=== PATIENT | female | born 1940 | race Caucasian/White ===

== ENCOUNTER 2017-04-12 15:56 | Inpatient (IN) | payer OTHER ==
[~2017-04-12] VITALS: Ht 152.4 cm; Wt 54.5 kg
[~2017-04-12 15:56] MED LIST: AMLODIPINE BESYL5 MG PO; ASPIRIN81 M2 PO; ATIVAN0.5 MG PO; BACTRIM,SEPT1 TABLET PO; CEPHALEXIN500 MG PO; CLONIDINE HCL0.1 MG PO; DUONEB 2.5-0.5 M3 ML AEROSOL; FERROUS SULFAT325 MG PO; FLORASTOR250 MG PO; FLUCONAZOLE100 MG PO; FUROSEMIDE40 MG PO; GLIPIZIDE5 MG PO; HEPARIN SO5000 UNITS SC; HYDRALAZINE HCL25 MG PO; K-DUR20 MEQ PO; KETOCONAZOLE60 GM TP; LEVEMIR FL100 UNIT/1 SC; LEVOFLOXACIN750 MG PO; LISINOPRIL10 MG PO; LOPRESSOR50 MG PO; LORAZEPAM0.5 MG PO; LOTRIMIN AF24 GM TP; METOPROLOL TART50 MG PO; MIRTAZAPINE15 MG PO; MOBIC7.5 MG PO; NORVASC5 MG PO; NOVOLOG PE100 UNITS/ SC; POTASSIUM CHLO20 ME1 PO; PREDNISONE10 MG PO; PRINIVIL20 MG PO; TYLENOL REGULA325 MG PO; Zeasorb Antifungal Treatment,Mitrazol Powder TP
[2017-04-12 17:00] LABS: BASOPHIL COUNT 0.1 K/uL (0-0.1); EOSINOPHIL (%) 2.4 % (0-5); EOSINOPHIL COUNT 0.2 K/uL (0-0.3); HEMATOCRIT 31.2 % (36.0-46.0); IMMATURE GRANULOCYTE (%) 0.3 % (0.0-0.7); INSTRUMENT ABS NEUTROPHIL CT 4.2 K/uL; LYMPHOCYTE COUNT 2.1 K/uL (1.0-2.8); MCH 31.3 PG (29.0-34.0); MCV 94.8 FL (83-99); MONOCYTE (%) 7.9 % (3-12); MONOCYTE COUNT 0.6 K/uL (0-0.8); NEUTROPHIL (%) 59.5 % (45-76); NEUTROPHIL COUNT 4.2 K/uL (1.8-6.4); PLATELET COUNT 150 K/uL (156-360); RBC DIS.WIDTH-CV 13.1 % (11.8-14.6); RBC DIS.WIDTH-SD 45.6 % (39-53); RED BLOOD COUNT 3.29 M/uL (3.80-5.20); WHITE BLOOD COUNT 7.1 K/uL (4.1-10.2)
[2017-04-12] MEDS ORDERED: LISINOPRIL10 MG PO (17:07)
[2017-04-12] MEDS ORDERED: NYSTOP60 GM TP (17:07)
[2017-04-12] MEDS ORDERED: JANUVIA25 M1 PO (17:08)
[2017-04-12 17:09] LABS: CHLORIDE 111 mEq/L (99-109); POTASSIUM 3.6 mEq/L (3.7-5.4); SODIUM 142 mEq/L (136-147)
[2017-04-12] MEDS ORDERED: CEROVITE ADVAN1 EACH PO (17:09)
[2017-04-12] MEDS ORDERED: SENNA PLUS TAB1 EACH PO (17:09)
[2017-04-12 17:11] LABS: GLUCOSE 232 mg/dL (70-99)
[2017-04-12 17:12] LABS: ANION GAP 6 MEQ/L (2-14)
[2017-04-12 17:14] LABS: GFR ESTIMATE (CALCULATED) 36 mL/min/
[2017-04-12 17:15] LABS: UREA NITROGEN (BUN) 36 mg/dL (9-23)
[2017-04-12] MEDS ORDERED: LO-DOSE ASPIRIN81 M2 PO (21:06)
[2017-04-12] MEDS ORDERED: TOPROL XL50 MG PO (21:06)
[2017-04-12 22:30] VITALS: BP 194/81
[2017-04-13 07:27] LABS: HEMATOCRIT 31.2 % (36.0-46.0); MCH 31.6 PG (29.0-34.0); MCHC 32.7 G/DL (30.0-36.0); MCV 96.6 FL (83-99); MEAN PLAT.VOLUME 9.2 uM^3 (9.5-12.4); PLATELET COUNT 159 K/uL (156-360); RBC DIS.WIDTH-SD 45.9 % (39-53); RED BLOOD COUNT 3.23 M/uL (3.80-5.20)
[2017-04-13 07:49] VITALS: BP 186/71
[2017-04-13 07:51] LABS: ALKALINE PHOSPHATASE 50 IU/L (3-129); ANION GAP 6 MEQ/L (2-14); CHLORIDE 112 MEQ/L (99-109); GFR ESTIMATE (CALCULATED) 42 mL/min/; GLUCOSE 133 mg/dL (70-99); POTASSIUM 3.6 MEQ/L (3.7-5.4); SAMPLE HEMOLYSIS CHECK 0; SAMPLE ICTERIC CHECK 0; SAMPLE LIPEMIA CHECK 0; SODIUM 144 MEQ/L (136-147); TOTAL BILIRUBIN 0.3 MG/DL (0.0-1.0); UREA NITROGEN (BUN) 28 mg/dL (9-23)
[2017-04-13 07:58] LABS: POINT-OF-CARE METER ID UU13113717
[2017-04-13 11:30] VITALS: BP 160/72
[2017-04-13 12:04] LABS: POINT-OF-CARE METER ID UU13113717
[2017-04-13 12:13] LABS: METH RESISTANT S AUREUS PCR POSITIVE (NEGATIVE); PROBE CHECK PASS
[2017-04-13 16:08] VITALS: BP 165/72
[2017-04-13 22:02] LABS: POINT-OF-CARE METER ID UU14174225
[2017-04-13 23:29] VITALS: BP 169/71
[2017-04-14 05:23] LABS: HEMATOCRIT 31.8 % (36.0-46.0); MCH 31.5 PG (29.0-34.0); MCV 95.5 FL (83-99); MEAN PLAT.VOLUME 8.8 uM^3 (9.5-12.4); PLATELET COUNT 170 K/uL (156-360); RBC DIS.WIDTH-CV 12.9 % (11.8-14.6); RBC DIS.WIDTH-SD 45.2 % (39-53); RED BLOOD COUNT 3.33 M/uL (3.80-5.20); WHITE BLOOD COUNT 7.6 K/uL (4.1-10.2)
[2017-04-14 06:07] LABS: ANION GAP 4 MEQ/L (2-14); CHLORIDE 110 MEQ/L (99-109); GFR ESTIMATE (CALCULATED) 39 mL/min/; GLUCOSE 125 mg/dL (70-99); SAMPLE HEMOLYSIS CHECK 0; SAMPLE ICTERIC CHECK 0; SAMPLE LIPEMIA CHECK 0; SODIUM 140 MEQ/L (136-147); UREA NITROGEN (BUN) 26 mg/dL (9-23)
[2017-04-14 06:40] LABS: POTASSIUM 4.4 MEQ/L (3.7-5.4)
[2017-04-14] MEDS ORDERED: BACTRIM,SEPT1 TABLET PO (07:50)
[2017-04-14 08:04] VITALS: BP 132/60
[2017-04-14] MEDS ORDERED: AMLODIPINE BESYL5 MG PO (08:39)
[2017-04-14 11:38] LABS: POINT-OF-CARE METER ID UU13113717
== END 2017-04-14 12:40 | disposition home or self-care (01) | DRG 603 ==
LOC: EME 15:56 → EDOF 21:20 → 5SOUTH 21:20
PROVIDERS: Internal Medicine; Nurse Practitioner Adult Health
DX: L03.116 Cellulitis of left lower limb (principal); L97.529 Non-pressure chronic ulcer of other part of left foot with unspecified severity; M20.42 Other hammer toe(s) (acquired), left foot; I12.9 Hypertensive chronic kidney disease with stage 1 through stage 4 chronic kidney disease, or unspecified chronic kidney disease; E11.621 Type 2 diabetes mellitus with foot ulcer; N18.3 Chronic kidney disease, stage 3 (moderate); F03.90 Unspecified dementia, unspecified severity, without behavioral disturbance, psychotic disturbance, mood disturbance, and anxiety; E11.22 Type 2 diabetes mellitus with diabetic chronic kidney disease; I83.009 Varicose veins of unspecified lower extremity with ulcer of unspecified site; F32.9 Major depressive disorder, single episode, unspecified; E11.42 Type 2 diabetes mellitus with diabetic polyneuropathy; J44.9 Chronic obstructive pulmonary disease, unspecified; Z83.3 Family history of diabetes mellitus; Z87.891 Personal history of nicotine dependence; Z22.322 Carrier or suspected carrier of Methicillin resistant Staphylococcus aureus
CPT/HCPCS: 73630; 80048; 80053; 81003; 82948; 83605; 85025; 85027; 87040; 87641; 93971; 99281; 99285; J0690; J1644; J1815; J3370; J7030; J7050

== ENCOUNTER 2017-11-26 02:09 | Emergency (ER) | payer OTHER ==
[~2017-11-26] VITALS: Ht 157.5 cm; Wt 60.3 kg
[~2017-11-26 02:09] MED LIST changes: +CEROVITE ADVAN1 EACH PO; +JANUVIA25 M1 PO; +LO-DOSE ASPIRIN81 M2 PO; +NYSTOP60 GM TP; +SENNA PLUS TAB1 EACH PO; +TOPROL XL50 MG PO
[2017-11-26 02:42] LABS: BASOPHIL (%) 0.9 % (0-1); BASOPHIL COUNT 0.1 K/uL (0-0.1); EOSINOPHIL (%) 2.4 % (0-5); EOSINOPHIL COUNT 0.3 K/uL (0-0.3); HEMATOCRIT 35.1 % (36.0-46.0); HEMOGLOBIN 11.7 G/DL (11.9-15.5); IMMATURE GRANULOCYTE (%) 0.5 % (0.0-0.7); LYMPHOCYTE (%) 21.5 % (15-42); LYMPHOCYTE COUNT 2.4 K/uL (1.0-2.8); MCH 31.6 PG (29.0-34.0); MCHC 33.3 G/DL (30.0-36.0); MCV 94.9 FL (83-99); MONOCYTE (%) 6.4 % (3-12); MONOCYTE COUNT 0.7 K/uL (0-0.8); NEUTROPHIL (%) 68.3 % (45-76); NEUTROPHIL COUNT 7.7 K/uL (1.8-6.4); PLATELET COUNT 196 K/uL (156-360); RBC DIS.WIDTH-SD 44.6 % (39-53); WHITE BLOOD COUNT 11.2 K/uL (4.1-10.2)
[2017-11-26 02:51] LABS: PTT 25.6 SEC (25-37)
[2017-11-26 02:53] LABS: CHLORIDE 110 mEq/L (99-109); POTASSIUM 3.6 mEq/L (3.7-5.4); SODIUM 141 mEq/L (136-147)
[2017-11-26 02:54] LABS: GLUCOSE 164 mg/dL (70-99)
[2017-11-26 02:58] LABS: CREATININE 1.7 mg/dL (0.6-1.3); GFR ESTIMATE (CALCULATED) 31 mL/min/
[2017-11-26 02:59] LABS: UREA NITROGEN (BUN) 40 mg/dL (9-23)
[2017-11-26] MEDS ORDERED: TYLENOL WITH C1 EACH PO (05:32)
[2017-11-26 06:37] VITALS: BP 145/71
== END 2017-11-26 06:41 | disposition home or self-care (01) ==
LOC: EME → EDBD 02:09 → EME 06:41
PROVIDERS: Emergency Medicine
DX: S01.81XA Laceration without foreign body of other part of head, initial encounter (principal); S01.01XA Laceration without foreign body of scalp, initial encounter; S50.01XA Contusion of right elbow, initial encounter; N18.9 Chronic kidney disease, unspecified; I73.9 Peripheral vascular disease, unspecified; F03.90 Unspecified dementia, unspecified severity, without behavioral disturbance, psychotic disturbance, mood disturbance, and anxiety; W06.XXXA Fall from bed, initial encounter; W22.8XXA Striking against or struck by other objects, initial encounter; Y93.84 Activity, sleeping; Z79.82 Long term (current) use of aspirin; Z87.891 Personal history of nicotine dependence
CPT/HCPCS: 70450; 72125; 73080; 80048; 85025; 85610; 85730; 99281; 99285

== ENCOUNTER 2017-12-25 06:47 | Emergency (ER) | payer OTHER ==
[~2017-12-25] VITALS: Ht 157.5 cm; Wt 60.9 kg
[~2017-12-25 06:47] MED LIST changes: +TYLENOL WITH C1 EACH PO
[2017-12-25 07:20] LABS: BASOPHIL (%) 0.7 % (0-1); BASOPHIL COUNT 0.1 K/uL (0-0.1); EOSINOPHIL (%) 1.9 % (0-5); EOSINOPHIL COUNT 0.2 K/uL (0-0.3); HEMATOCRIT 33.1 % (36.0-46.0); IMMATURE GRANULOCYTE (%) 0.5 % (0.0-0.7); MCH 31.8 PG (29.0-34.0); MCHC 33.2 G/DL (30.0-36.0); MCV 95.7 FL (83-99); MONOCYTE (%) 4.6 % (3-12); MONOCYTE COUNT 0.5 K/uL (0-0.8); NEUTROPHIL (%) 73.3 % (45-76); NEUTROPHIL COUNT 7.6 K/uL (1.8-6.4); PLATELET COUNT 201 K/uL (156-360); RBC DIS.WIDTH-CV 13.2 % (11.8-14.6); RBC DIS.WIDTH-SD 46.7 % (39-53); RED BLOOD COUNT 3.46 M/uL (3.80-5.20); WHITE BLOOD COUNT 10.3 K/uL (4.1-10.2)
[2017-12-25 07:58] LABS: CHLORIDE 107 MEQ/L (99-109); CREATININE 1.8 MG/DL (0.6-1.3); GFR ESTIMATE (CALCULATED) 29 mL/min/; GLUCOSE 175 mg/dL (70-99); POTASSIUM 4.3 MEQ/L (3.7-5.4); SODIUM 136 MEQ/L (136-147); UREA NITROGEN (BUN) 36 mg/dL (9-23)
[2017-12-25] MEDS ORDERED: TYLENOL WITH C1 EACH PO (09:32)
[2017-12-25 10:52] VITALS: BP 162/71
== END 2017-12-25 10:58 ==
LOC: EME 06:47
PROVIDERS: Emergency Medicine
PROC: 0RSKXZZ Reposition Left Shoulder Joint, External Approach (ICD-10-PCS; principal; 2017-12-25)
DX: S43.015A Anterior dislocation of left humerus, initial encounter (principal); S09.90XA Unspecified injury of head, initial encounter; W18.30XA Fall on same level, unspecified, initial encounter; Y93.01 Activity, walking, marching and hiking; M47.892 Other spondylosis, cervical region; M48.02 Spinal stenosis, cervical region; M41.86 Other forms of scoliosis, lumbar region; M16.0 Bilateral primary osteoarthritis of hip; M47.896 Other spondylosis, lumbar region; N18.9 Chronic kidney disease, unspecified; F03.90 Unspecified dementia, unspecified severity, without behavioral disturbance, psychotic disturbance, mood disturbance, and anxiety; Z79.84 Long term (current) use of oral hypoglycemic drugs; Z79.82 Long term (current) use of aspirin; Z87.891 Personal history of nicotine dependence; Z91.81 History of falling; Z86.79 Personal history of other diseases of the circulatory system; Z87.2 Personal history of diseases of the skin and subcutaneous tissue; Z87.440 Personal history of urinary (tract) infections; Z85.9 Personal history of malignant neoplasm, unspecified
CPT/HCPCS: 70450; 72125; 73030; 73502; 80048; 85025; 99281; 99285; J2270

== ENCOUNTER 2017-12-31 16:55 | Emergency (ER) | payer OTHER ==
[~2017-12-31] VITALS: Ht 157.5 cm; Wt 56.1 kg
[2017-12-31 17:58] LABS: HEMATOCRIT 27.1 % (36.0-46.0); HEMOGLOBIN 9.1 G/DL (11.9-15.5); MCH 32.7 PG (29.0-34.0); MCHC 33.6 G/DL (30.0-36.0); MCV 97.5 FL (83-99); PLATELET COUNT 230 K/uL (156-360); RBC DIS.WIDTH-CV 13.2 % (11.8-14.6); RBC DIS.WIDTH-SD 47.8 % (39-53); RED BLOOD COUNT 2.78 M/uL (3.80-5.20)
[2017-12-31 18:10] LABS: CHLORIDE 109 mEq/L (99-109); POTASSIUM 4.5 mEq/L (3.7-5.4); SODIUM 141 mEq/L (136-147)
[2017-12-31 18:12] LABS: GLUCOSE 216 mg/dL (70-99)
[2017-12-31 18:15] LABS: CREATININE 2.1 mg/dL (0.6-1.3); GFR ESTIMATE (CALCULATED) 24 mL/min/
[2017-12-31 18:16] LABS: UREA NITROGEN (BUN) 44 mg/dL (9-23)
[2017-12-31 18:47] LABS: APPEARANCE CLOUDY ((CLEAR)); BILIRUBIN NEGATIVE; BLOOD LARGE; COLOR AMBER ((YELLOW)); GLUCOSE (STRIP) 50; KETONES NEGATIVE; LEUKOCYTES MODERATE; NITRITE NEGATIVE; PROTEIN (STRIP) >=500; SPECIFIC GRAVITY 1.019 (1.000-1.030); UROBILINOGEN 0.2 MG/DL (0.2-1.0)
[2017-12-31 19:06] LABS: EPITHELIAL CELLS 1+ /HPF; MUCUS NONE SEEN /LPF; WHITE BLOOD CELLS 30-40 /HPF (0-5)
[2017-12-31 19:07] LABS: BACTERIA 3+ /HPF; UCUL ADDED? YES
[2017-12-31] MEDS ORDERED: CIPRO500 MG PO (19:45)
[2017-12-31 21:25] VITALS: BP 151/81
== END 2017-12-31 21:31 | disposition home or self-care (01) ==
LOC: EME 16:55
PROVIDERS: Emergency Medicine
DX: N39.0 Urinary tract infection, site not specified (principal); E86.0 Dehydration; N17.9 Acute kidney failure, unspecified; F03.90 Unspecified dementia, unspecified severity, without behavioral disturbance, psychotic disturbance, mood disturbance, and anxiety; Z87.440 Personal history of urinary (tract) infections; Z87.891 Personal history of nicotine dependence; Z79.82 Long term (current) use of aspirin
CPT/HCPCS: 70450; 71046; 80048; 81003; 85027; 87077; 87086; 87186; 99281; 99284; J0696; J7030